=== PATIENT | female | born 1980 | race Caucasian/White ===

== ENCOUNTER 2023-08-31 17:51 | Emergency (ER) | payer OTHER ==
[~2023-08-31] VITALS: Ht 160 cm; Wt 55.0 kg
[2023-08-31 18:00] VITALS: O2SAT 100
[2023-08-31] MEDS ORDERED: KETOROLAC 60MG/2ML VIAL IM ONE (18:30)
[2023-08-31 18:54] VITALS: TEMP 98.1
[2023-08-31] MEDS: IBUPROFEN 600MG TABLET PO ONE (19:04)
[2023-08-31] MEDS: LORAZEPAM 1MG TABLET PO ONE (19:04)
[2023-08-31] MEDS ORDERED: CYCL10TA21 MT (19:38)
[2023-08-31] MEDS ORDERED: NAPR220C61 MT (19:38)
[2023-08-31 19:58] VITALS: BP 135/92; PULSE 92; RESP 20
== END 2023-08-31 19:59 | disposition home or self-care (01) ==
LOC: ER 17:51
DX: S13.4XXA Sprain of ligaments of cervical spine, initial encounter (principal); F41.9 Anxiety disorder, unspecified; F32.9 Major depressive disorder, single episode, unspecified; G89.11 Acute pain due to trauma; V49.49XA Driver injured in collision with other motor vehicles in traffic accident, initial encounter; Y93.89 Activity, other specified; Y92.89 Other specified places as the place of occurrence of the external cause; Y99.8 Other external cause status
CPT/HCPCS: 81025; 99284